=== PATIENT | female | born 1950 | race Caucasian/White ===

== ENCOUNTER 2017-12-16 07:00 | Day surgery (SDC) | payer OTHER ==
[~2017-12-16] VITALS: Ht 152.4 cm; Wt 65.8 kg
[~2017-12-16 07:00] MED LIST: CARAFATE1 GM PO; DICY20TA PO; GABAPENTIN300 MG PO; LEVO-T25 MCG PO; LINZESS145 MCG PO; SIMVASTATIN20 MG PO; TYLENOL ARTHRI650 MG PO; ZANTAC300 MG PO
[2017-12-17] MEDS ORDERED: KETO10TA2 PO (08:26)
[2017-12-17] MEDS ORDERED: PERCOCET 5-3251 EACH PO (08:27)
[2017-12-17] MEDS ORDERED: RECTICARE30 GM TOP (08:27)
== END 2017-12-17 08:00 | disposition home or self-care (01) ==
LOC: SURH 07:00 → CIR.AMB 07:00 → O/R 11:03 → SURH 11:03 → EDSTATUS 11:15 → SURH 11:15 → CIR.AMB 12-17 08:00 → SURH 12-17 13:41 → O/R 12-17 13:41
DX: N81.6 Rectocele (principal); E03.8 Other specified hypothyroidism

== ENCOUNTER 2020-12-21 12:30 | Inpatient (IN) | payer OTHER ==
[~2020-12-21] VITALS: Ht 149.9 cm; Wt 60.3 kg
[~2020-12-21 12:30] MED LIST changes: +KETO10TA2 PO; +PERCOCET 5-3251 EACH PO; +RECTICARE30 GM TOP
[2021-01-06] MEDS ORDERED: INTESTINEX680 M1 PO (07:47)
[2021-01-06] MEDS ORDERED: FUSION PLUS CA1 EACH PO (07:47)
[2021-01-06] MEDS ORDERED: ULTRAM50 MG PO (07:48)
[2021-01-06] MEDS ORDERED: MIRALAX17 GM PO (07:48)
[2021-01-07] MEDS ORDERED: ULTRACET PO (12:17)
[2021-01-07] MEDS ORDERED: BACTRIM DS TAB1 EACH PO (12:17)
[2021-01-07] MEDS ORDERED: CENTANY30 GM TOP (12:17)
[2021-01-07] MEDS ORDERED: INTESTINEX680 M1 PO (12:17)
== END 2021-01-07 13:53 | disposition home or self-care (01) | DRG 334 ==
LOC: SURH 12-30 12:30 → O/R 01-02 08:30 → SURH 01-02 12:30
PROVIDERS: ADMIT Surgery; ATTEND Surgery
PROC: 0DJD8ZZ Inspection of Lower Intestinal Tract, Via Natural or Artificial Opening Endoscopic (ICD-10-PCS; 2021-01-02)
PROC: 30233N1 Transfusion of Nonautologous Red Blood Cells into Peripheral Vein, Percutaneous Approach (ICD-10-PCS; 2021-01-02)
PROC: 3E0F7SF Introduction of Other Gas into Respiratory Tract, Via Natural or Artificial Opening (ICD-10-PCS; 2021-01-02)
PROC: 3E0F7GC Introduction of Other Therapeutic Substance into Respiratory Tract, Via Natural or Artificial Opening (ICD-10-PCS; 2021-01-02)
PROC: 0DTP0ZZ Resection of Rectum, Open Approach (ICD-10-PCS; principal; 2021-01-02 15:45)
DX: K57.32 Diverticulitis of large intestine without perforation or abscess without bleeding (principal); K59.09 Other constipation; K21.9 Gastro-esophageal reflux disease without esophagitis; K59.02 Outlet dysfunction constipation; J45.20 Mild intermittent asthma, uncomplicated; D64.9 Anemia, unspecified; E03.9 Hypothyroidism, unspecified